=== PATIENT | female | born 1955 | race Caucasian/White ===

== ENCOUNTER 2017-01-15 21:22 | Emergency (ER) | payer MEDICARE, OTHER, MEDICAID ==
[~2017-01-15] VITALS: Ht 170.2 cm; Wt 90.0 kg
[~2017-01-15 21:22] MED LIST: ATROPINE SULFATE 1MG/10ML SYR ONE; DOPAMINE 400MG IN DEXT 5% 250ML PREMIX IV ONE; EPINEPHRINE 0.1MG/ML (1:10,000) 10ML SYR ONE; SODIUM BICARBONATE 7.5% 0.9 MEQ/ML 50ML SYR IV ONE; SUCCINYLCHOLINE CHLORIDE 200MG/10ML VIAL IV ONE
[2017-01-15 21:58] VITALS: BP 123/46
[2017-01-15] MEDS ORDERED: SUCCINYLCHOLINE CHLORIDE 200MG/10ML VIAL IV ONE (22:30)
[2017-01-15] MEDS ORDERED: DOPAMINE 400MG PREMIX 250 ML IV ONE (22:30)
[2017-01-15] MEDS ORDERED: PHENYLEPHRINE 20 MG in DEXT 5% WATER 248 ML IV PRN ×2 (22:30→22:45)
[2017-01-15] MEDS ORDERED: VANCOMYCIN 1 G PREMIX 200 ML IV ONE (22:30)
[2017-01-15] MEDS ORDERED: PIPERACILLIN/TAZ 3.375G PREMIX 50 ML IV ONE (22:30)
[2017-01-15] MEDS ORDERED: EPINEPHRINE 0.1MG/ML (1:10,000) 10ML SYR ONE (22:41)
[2017-01-15 23:09] LABS: BASOPHILS % 0.4 % (0.0-2.0); EOSINOPHILS % 0.5 % (0.0-5.0); HEMATOCRIT. 46.7 % (36.0-48.0); HEMOGLOBIN. 12.7 g/dL (12.0-16.0); MEAN CORPUSCULAR HEMOGLOBIN 32.8 pg (28.0-32.0); MEAN CORPUSCULAR HGB CONC 27.2 g/dL (31.0-37.0); MEAN CORPUSCULAR VOLUME 120.7 fL (81.0-99.0); MEAN PLATELET VOLUME 11.1 fl (7.4-10.4); MONOCYTES % 5.8 % (2.0-8.0); NEUTROPHILS % 50.3 % (40.0-76.0); PLATELET 53 x1000/uL (130-400); RED BLOOD CELL COUNT 3.87 mill/uL (4.2-5.4); RED CELL DISTRIBUTION WIDTH 16.1 % (11.6-14.6); WHITE BLOOD COUNT 11.2 x1000/uL (4.5-11.0)
[2017-01-15 23:15] LABS: CHLORIDE 119 mEq/L (98-107); INDEX HEMOLYSI 3 (1-3); INDEX ICTERIC 1 (1-4); INDEX LIPEMIC 1 (1-3)
[2017-01-15 23:18] LABS: INR 1.9; PROTHROMBIN TIME 19.2 sec
[2017-01-15 23:21] LABS: ADD RBC MORPHOLOGY YES; ALANINE AMINOTRANSFERASE 187 IU/L (13-61); ALBUMIN 1.7 g/dL (3.4-5.0); ANION GAP 31; CALCIUM 6.3 mg/dL (8.5-10.1); DIFFERENTIAL COMMENT 1; UREA NITROGEN BLOOD 30 mg/dL (7-21); eGFR > 60 mL/min (>60)
[2017-01-15 23:27] LABS: CARBON DIOXIDE 9 mEq/L (21-32)
[2017-01-15 23:28] LABS: TROPONIN I 0.89 ng/mL (0.00-0.04)
[2017-01-15 23:39] LABS: LACTIC ACID 14.7 mmol/L (0.4-2.0)
[2017-01-16 00:29] LABS: PLATELET ESTIMATE DECREASED
== END 2017-01-15 22:54 | disposition expired ==
LOC: ER 21:23
DX: I46.9 Cardiac arrest, cause unspecified (principal); D64.9 Anemia, unspecified; F41.9 Anxiety disorder, unspecified; R56.9 Unspecified convulsions; I10 Essential (primary) hypertension; R06.02 Shortness of breath
CPT/HCPCS: 31500; 36415; 36556; 43753; 80053; 83605; 84484; 85025; 85610; 87040; 92950; 99291; J0171; J0330; J0461; J1265; J2370; J2543; J3490; J7060